=== PATIENT | female | born 1970 | race Caucasian/White ===

== ENCOUNTER 2019-11-14 10:46 | Emergency (ER) | payer OTHER, SELFPAY ==
[2019-11-14 11:03] VITALS: BP 158/76; PULSE 92; RESP 18; TEMP 36.5; O2SAT 100; BMI 35.5
--- NOTE | 2019-11-14 11:11 | ED_ITS ---
HPI - Recheck/Abnormal Lab/Rx General Chief Complaint: Recheck/Abnormal Lab/Rx Stated Complaint: Turning Yellow Time Seen by Provider: 11/14/19 10:55 Source: patient Mode of arrival: Ambulatory Limitations: no limitations History of Present Illness HPI narrative: Patient is a 49-year-old female who presents with yellowing skin color. She says over the past few months she has been extremely fatigued. She states friends noticed that she was yellow 3 days ago this morning she woke up and noticed that her eyes were yellow and things were definitely getting worse. She says her urine has been dark. She has no abdominal pain no nausea or vomiting. She says that every time she eats fatty food it makes her really nauseous does. She has no chest pain or shortness of breath. She has not had any fever chills or weakness. She is currently visiting from out of town. Related Data Home Medications Medication Instructions Recorded Confirmed omeprazole magnesium [Prilosec OTC] 20 mg PO PRN PRN 11/14/19 11/14/19 Allergies Allergy/AdvReac Type Severity Reaction Status Date / Time No Known Drug Allergies Allergy Verified 11/14/19 15:09 Review of Systems Review of Systems Narrative: GENERAL: Denies chills, fatigue, malaise, fever, sweats, travel HEENT: Denies sinus pain, ear pain, sore throat, difficulty swallowing, neck pain RESPIRATORY: Denies dyspnea, cough, wheezing, hemoptysis, sputum. CARDIOVASCULAR: Denies chest pain, palpitations, orthopnea, edema GASTROINTESTINAL: Denies nausea, vomiting, abdominal pain, diarrhea, constipation, melena. : Denies dysuria, frequency, incontinence, hematuria, urinary retention, flank pain. MUSCULOSKELETAL: Denies weakness, joint pain, or bony pain SKIN: Yellow see HPI NEUROLOGIC: Denies weakness, dizziness, headache, numbness, change in speech, confusion PSYCHIATRIC: No concerning psychosocial issues. 12 point review of systems is negative except for those stated above and HPI Patient History Medical History Patient denies medical problems (Acute) Social History Smoking Status: Never smoker Smoking Status: Never smoker alcohol intake frequency: 0-2 drinks per day Substance Use Type: does not use Exam Initial Vital Signs Initial Vital Signs: Vital Signs Temperature 97.7 F 11/14/19 11:03 Pulse Rate 92 H 11/14/19 11:03 Respiratory Rate 18 11/14/19 11:03 Blood Pressure 158/76 H 11/14/19 11:03 Pulse Oximetry 100 11/14/19 11:03 GENERAL: Well-appearing, well-nourished and in no acute distress. HEENT: Head atraumatic,EOMI, pupils reactive, icterus noted bilaterally face symmetric, moist mucous membranes CARDIOVASCULAR: Regular rate and rhythm without murmurs, rubs or gallops. RESPIRATORY: Breath sounds equal bilaterally, no wheezes rales or rhonchi. ABDOMEN: Soft, nontender. Normoactive bowel sounds all 4 quadrants. No guarding or rebound. EXTREMITIES: Normal range of motion, no clubbing or edema. Neurovascularly intact NEUROLOGICAL: Alert and oriented x4.Normal gait and speech. Cranial nerves II through XII grossly intact. SKIN: Warm, dry, no laceration, no petechiae, no rashes or lesions. Course Orders Ordered: ED Orders 11/14/19 11:20 Acetaminophen Stat Complete Blood Count AUTO DIFF Stat Comprehensive Metabolic Panel Stat Ethanol (ETOH) Stat Hepatic (Liver) Panel Stat Lipase Stat Monotest Stat 11/14/19 11:58 CT abdomen pelvis w con Stat 11/14/19 12:25 US abdomen limited Stat 11/14/19 13:50 MR abdomen wo con Stat 11/14/19 15:10 Hepatitis Acute Panel Stat Vital Signs Vital signs: Vital Signs - 8 hr 11/14/19 11:03 11/14/19 12:05 11/14/19 13:00 Temperature 97.7 F Pulse Rate 92 H 85 74 Respiratory Rate 18 16 16 Blood Pressure 158/76 H Blood Pressure [Left Arm] 119/69 113/67 Pulse Oximetry 100 96 98 11/14/19 15:34 Temperature Pulse Rate 88 Respiratory Rate 17 Blood Pressure Blood Pressure [Left Arm] 119/65 Pulse Oximetry 98 MDM - Recheck/Abnormal Lab/Rx Lab Data Attestation: I reviewed the patient's lab results. Result diagrams: 11/14/19 11:20 11/14/19 11:20 Labs: Lab Results 11/14/19 11/14/19 11/14/19 Range/Units 11:20 11:20 11:20 WBC 4.4 L (4.5-11.0) X10^3/uL RBC 3.84 L (4.0-5.2) X10^6/uL Hgb 12.1 (12.0-16.0) g/dL Hct 34.7 L (36-46) % MCV 90.4 (80-100) fL MCH 31.6 (26-34) PG MCHC 35.0 (30-36) % RDW 18.4 H (11.6-14.8) % Plt Count 127 L (150-400) X10^3/uL Neut % (Auto) 67.3 (50-75) % Lymph % (Auto) 24.6 L (25-40) % [place] % (Auto) 5.3 (3-14) % Eos % (Auto) 1.8 L (2-4) % Baso % (Auto) 1.0 (0-2) % Neut # (Auto) 2900 (3625-6657) /uL Lymph # (Auto) 1100 (0837-5330) /uL [place] # (Auto) 200 (0-900) /uL Eos # (Auto) 100 (0-450) /uL Baso # (Auto) 0 (0-100) /uL Sodium 133 L (137-145) mmol/L Potassium 3.5 (3.4-5.1) mmol/L Chloride 105 (98-107) mmol/L Carbon Dioxide 22 (22-32) mmol/L BUN 7 (7-17) mg/dL Creatinine 0.50 L (0.52-1.04) mg/dL Estimated GFR > 60.0 (>60) mL/min BUN/Creatinine Ratio 14.0 (6-22) Glucose 190 H (70-100) mg/dL Calcium 8.3 L (8.4-10.2) mg/dL Total Bilirubin 10.5 H 10.4 H (0.2-1.3) mg/dL Conjugated Bilirubin 4.6 H (0.0-0.3) md/dL Unconjugated Bilirubin 2.5 H (0.0-1.1) mg/dL AST 1718 H 1690 H (14-36) IU/L ALT 1011 H 1020 H (<35) IU/L Alkaline Phosphatase 199 H 200 H (38-126) U/L Total Protein 8.7 H 8.5 H (6.3-8.2) g/dL Albumin 3.1 L 3.0 L (3.5-5.0) g/dL Globulin 5.6 H 5.5 H (1.7-4.1) g/dL Albumin/Globulin Ratio 0.6 L 0.5 L (1.0-2.8) Lipase 274 (23-300) U/L Acetaminophen < 10 L (10-30) ug/mL Ethyl Alcohol < 10 ( - 10) mg/dL Monoscreen (Negative) 11/14/19 Range/Units 11:20 WBC (4.5-11.0) X10^3/uL RBC (4.0-5.2) X10^6/uL Hgb (12.0-16.0) g/dL Hct (36-46) % MCV (80-100) fL MCH (26-34) PG MCHC (30-36) % RDW (11.6-14.8) % Plt Count (150-400) X10^3/uL Neut % (Auto) (50-75) % Lymph % (Auto) (25-40) % [place] % (Auto) (3-14) % Eos % (Auto) (2-4) % Baso % (Auto) (0-2) % Neut # (Auto) (2681-4969) /uL Lymph # (Auto) (4712-6216) /uL [place] # (Auto) (0-900) /uL Eos # (Auto) (0-450) /uL Baso # (Auto) (0-100) /uL Sodium (137-145) mmol/L Potassium (3.4-5.1) mmol/L Chloride (98-107) mmol/L Carbon Dioxide (22-32) mmol/L BUN (7-17) mg/dL Creatinine (0.52-1.04) mg/dL Estimated GFR (>60) mL/min BUN/Creatinine Ratio (6-22) Glucose (70-100) mg/dL Calcium (8.4-10.2) mg/dL Total Bilirubin (0.2-1.3) mg/dL Conjugated Bilirubin (0.0-0.3) md/dL Unconjugated Bilirubin (0.0-1.1) mg/dL AST (14-36) IU/L ALT (<35) IU/L Alkaline Phosphatase (38-126) U/L Total Protein (6.3-8.2) g/dL Albumin (3.5-5.0) g/dL Globulin (1.7-4.1) g/dL Albumin/Globulin Ratio (1.0-2.8) Lipase (23-300) U/L Acetaminophen (10-30) ug/mL Ethyl Alcohol ( - 10) mg/dL Monoscreen Negative (Negative) Urine Dip Bedside Urine Glucose Negative Bedside Urine Bilirubin - Negative Bedside Urine Ketone - Negative Urine Specific [place] 1.010 Bedside Urine Occult Blood - Negative Bedside Urine pH 6.0 Bedside Urine Protein - Negative Bedside Urine Urobilinogen - Negative Bedside Urine Nitrite - Negative Bedside Urine Leukocytes - Negative Esterase Imaging Data CT scan - abdomen/pelvis: Radiologist's Impression: PROCEDURE: CT ABDOMEN PELVIS W CON INDICATIONS: jaundice TECHNIQUE: After the administration of intravenous contrast, 5 mm thick sections acquired from the diaphragm to the symphysis. 5 mm coronal and sagittal reformats were acquired. For radiation dose reduction, the following was used: automated exposure control, adjustment of mA and/or kV according to patient size. COMPARISON: None. FINDINGS: Image quality: Excellent. ABDOMEN: Lung bases: Lung bases are clear. Heart size is normal. Solid organs: The liver has a nodular surface contour with enlargement of the left lobe consistent with cirrhotic change. No focal symphysis liver masses. Gallbladder is somewhat contracted. The gallbladder wall is thickened. There are small gallstones in the gallbladder wall.. Biliary system is non dilated. Question small pancreatic pseudocyst versus small cystic neoplasm measuring 1.3 cm in maximum diameter. Pancreas otherwise enhances normally. Mild splenomegaly No adrenal nodules. Kidneys demonstrate normal size and enhancement, without hydronephrosis. Peritoneum and bowel: Mild thickening of the second portion of the duodenum. No dilated loops. No evidence of bowel obstruction. Mild ascites. No free air or abscess cavity. Nodes and vessels: Prominent. Portal/peripancreatic adenopathy, with confluent lymph nodes measuring approximately 4.0 x 1 cm on image 23/2. Portacaval adenopathy measuring approximately 2.1 x 2.5 cm. No other suspicious adenopathy noted.. Aorta and inferior vena cava are normal in size. Incidental note made of the presence of a circumaortic left renal vein. Miscellaneous: No ventral hernias. PELVIS: Genitourinary: Bladder wall thickness is normal. Miscellaneous: No inguinal hernias or adenopathy. Bones: No suspicious bony lesions. No vertebral body compression fractures. IMPRESSION: 1. Cirrhosis, mild splenomegaly, small amount ascites. 2. No biliary ductal dilatation. 3. Nonspecific periportal/peripancreatic/portocaval adenopathy. 4. Cholelithiasis. 5. Question small pancreatic pseudocyst versus small cystic neoplasm of the pancreas. 3. Mild thickening of the second portion of the duodenum. Dictated by: Garry Pablo M.D. on 11/14/2019 at 12:19 US - abdomen: Radiologist's Impression: PROCEDURE: US ABDOMEN LIMITED INDICATIONS: RUQ- VERY ELEVATED LIVER ENZYMES AND BILI TECHNIQUE: Real-time scanning was performed of the abdominal and retroperitoneal organs, with image documentation. COMPARISON: CT abdomen pelvis also performed today. FINDINGS: Liver: Within normal limits in size. Nodular liver surface. No focal lesion identified. Gallbladder: Nondilated. Small gallstones. Gallbladder wall thickening measuring 6 mm. No pericholecystic fluid. Negative sonographic Irizarry's sign. Biliary ducts: Intrahepatic bile ducts are non-dilated. Extrahepatic bile duct caliber measures 6 mm. Normal is 6-7 mm or less in diameter, or 10 mm or less post-cholecystectomy. Pancreas: Visualized portions of the pancreas are sonographically normal. Small oblong shaped circumscribed hypoechoic lymph node superior to the splenic artery, which is also seen on CT measuring 3.4 x 0.9 cm. Right kidney: No hydronephrosis. IMPRESSION: 1. Gallbladder is nondistended which speaks against acute cholecystitis. However, there is moderate gallbladder wall thickening and gallstones. Favor reactive etiology. 2. Cirrhosis. No ascites or biliary ductal dilatation. 3. Enlarged lymph node adjacent to the pancreas. Dictated by: Tristen Hernandez M.D. on 11/14/2019 at 13:13 MRCP: Radiologist's Impression: PROCEDURE: MR ABDOMEN WO CON INDICATIONS: elevated bili TECHNIQUE: Coronal HASTE through the abdomen, axial 2-D FLASH in- and [id number], and breath-hold T2 FSE with fat saturation through the biliary system and pancreas. Oblique coronal and axial thin-slice HASTE, radial thick-slab HASTE centered on the extrahepatic bile ducts. Intravenous secretin: Not requested. COMPARISON: [facility], US, US ABDOMEN LIMITED, 11/14/2019, 12:42. [facility], CT, CT ABDOMEN PELVIS W CON, 11/14/2019, 11:52. FINDINGS: Image quality: Excellent. Pancreas and biliary system: Intra- and extra-hepatic biliary ducts are non dilated. No biliary ductal filling defects. Pancreas is normal in morphology, without adjacent soft tissue edema. Pancreatic duct is normal in caliber, without developmental anomalies. Gallbladder contains tiny gallstones. There is gallbladder wall thickening. There is no fluid around the gallbladder.. Other solid organs: Nodular contour of the liver with enlarged left lobe suggests cirrhosis. Splenomegaly. No adrenal nodules. Both kidneys are normal in size, without hydronephrosis. Nodes and vessels: No retroperitoneal or mesenteric adenopathy by size criteria. Aorta and inferior vena cava are normal in size. Bowel and peritoneum: Unenhanced bowel loops are normal in caliber. Second portion the duodenum is unremarkable (it was thought to be thickened on the CT). Mild ascites. Lung bases: No basal pleural effusions. Heart size is normal. Bones and soft tissues: No ventral hernias. Bone marrow is of normal overall signal. IMPRESSION: 1. Cirrhotic change, splenomegaly. 2. Cholelithiasis. 3. No biliary stones. No biliary ductal dilatation. Dictated by: Garry Pablo M.D. on 11/14/2019 at 15:53 MDM Narrative Medical decision making narrative: The patient is relatively asymptomatic she has no abdominal pain she has painless jaundice. A significant elevation of bilirubin and liver enzymes without right upper quadrant pain nausea or vomiting. No common bile duct dilation noted on ultrasound or CT. Briefly discussed case with Dr. Cavazos who agrees with MRCP as an outpatient follow-up. 4:[address] Jewell Mata, patient's primary PCP at [facility]. She has been updated patient's symptoms test results, she is putting in an urgent referral to GI. The patient has been given disks of all imaging along with copies of blood work and reports. Also information faxed to PCP office with patient permission. Discharge Plan Departure Patient Disposition: Home Clinical Impression: Jaundice, Elevated liver enzymes Discharge Date/Time: 11/14/19 16:26 Activity Restrictions/Additional Instructions: *You have been diagnosed with jaundice elevated liver enzymes *What to do: Unclear why your liver enzymes are so elevated. You do have a small area on your pancreas which is concerning. Your primary care provider has been notified and is putting in her urgent referral for a GI doctor. *Continue to take medications as directed DO NOT TAKE TYLENOL/ACETAMINOPHEN, AVOID ALCOHOL *Follow up with your primary care provider in 2-3 days *Return to ER if you should have increased abdominal pain, nausea, vomiting fevers or any new, worsening or concerning symptoms Prescriptions: No Action Prilosec OTC 20 mg Tablet,Delayed Release (Dr/Ec) 20 mg PO PRN PRN (Reason: Acid Reflux) RF: 0
[2019-11-14 11:29] LABS: Add Manual Diff / Slide Review NO; Basophils Absolute Auto 0 /uL (0-100); Eosinophils Absolute Auto 100 /uL (0-450); Eosinophils Percent Auto 1.8 % (2-4); Hematocrit 34.7 % (36-46); Hemoglobin 12.1 g/dL (12.0-16.0); Lymphocytes Absolute Auto 1100 /uL (1100-4500); Lymphocytes Percent Auto 24.6 % (25-40); Mean Corpuscular Hemoglobin 31.6 PG (26-34); Mean Corpuscular Volume 90.4 fL (80-100); Monocytes Absolute Auto 200 /uL (0-900); Monocytes Percent Auto 5.3 % (3-14); Neutrophils Absolute Auto 2900 /uL (1500-7000); Neutrophils Percent Auto 67.3 % (50-75); Platelet Count 127 X10^3/uL (150-400); Red Blood Cell Count 3.84 X10^6/uL (4.0-5.2); Red Cell Distribution Width 18.4 % (11.6-14.8); White Blood Cell Count 4.4 X10^3/uL (4.5-11.0)
[2019-11-14 11:49] LABS: Albumin 3.1 g/dL (3.5-5.0); Albumin Globulin Ratio 0.6 (1.0-2.8); Alkaline Phosphatase 199 U/L (38-126); Bilirubin Total 10.5 mg/dL (0.2-1.3); Blood Urea Nitrogen 7 mg/dL (7-17); Calcium 8.3 mg/dL (8.4-10.2); Carbon Dioxide 22 mmol/L (22-32); Chloride 105 mmol/L (98-107); Estimated Glomerular Filt Rate > 60.0 mL/min (>60); Globulin 5.6 g/dL (1.7-4.1); Glucose 190 mg/dL (70-100); HEMOLYSIS < 15 (0-50); Lipase 274 U/L (23-300); Potassium 3.5 mmol/L (3.4-5.1); Sodium 133 mmol/L (137-145); Total Protein 8.7 g/dL (6.3-8.2)
--- NOTE | 2019-11-14 11:58 | DI.CT.S_ITS ---
PROCEDURE: CT ABDOMEN PELVIS W CON INDICATIONS: jaundice TECHNIQUE: After the administration of intravenous contrast, 5 mm thick sections acquired from the diaphragm to the symphysis. 5 mm coronal and sagittal reformats were acquired. For radiation dose reduction, the following was used: automated exposure control, adjustment of mA and/or kV according to patient size. COMPARISON: None. FINDINGS: Image quality: Excellent. ABDOMEN: Lung bases: Lung bases are clear. Heart size is normal. Solid organs: The liver has a nodular surface contour with enlargement of the left lobe consistent with cirrhotic change. No focal symphysis liver masses. Gallbladder is somewhat contracted. The gallbladder wall is thickened. There are small gallstones in the gallbladder wall.. Biliary system is non dilated. Question small pancreatic pseudocyst versus small cystic neoplasm measuring 1.3 cm in maximum diameter. Pancreas otherwise enhances normally. Mild splenomegaly No adrenal nodules. Kidneys demonstrate normal size and enhancement, without hydronephrosis. Peritoneum and bowel: Mild thickening of the second portion of the duodenum. No dilated loops. No evidence of bowel obstruction. Mild ascites. No free air or abscess cavity. Nodes and vessels: Prominent. Portal/peripancreatic adenopathy, with confluent lymph nodes measuring approximately 4.0 x 1 cm on image 23/2. Portacaval adenopathy measuring approximately 2.1 x 2.5 cm. No other suspicious adenopathy noted.. Aorta and inferior vena cava are normal in size. Incidental note made of the presence of a circumaortic left renal vein. Miscellaneous: No ventral hernias. PELVIS: Genitourinary: Bladder wall thickness is normal. Miscellaneous: No inguinal hernias or adenopathy. Bones: No suspicious bony lesions. No vertebral body compression fractures. IMPRESSION: 1. Cirrhosis, mild splenomegaly, small amount ascites. 2. No biliary ductal dilatation. 3. Nonspecific periportal/peripancreatic/portocaval adenopathy. 4. Cholelithiasis. 5. Question small pancreatic pseudocyst versus small cystic neoplasm of the pancreas. 3. Mild thickening of the second portion of the duodenum. Dictated by: Garry Pablo M.D. on 11/14/2019 at 12:19 Approved by: Garry Pablo M.D. on 11/14/2019 at 12:30
[2019-11-14 11:59] LABS: Alanine Aminotransferase 1011 IU/L (<35)
[2019-11-14 12:05] VITALS: BP 119/69; PULSE 85; RESP 16; O2SAT 96
[2019-11-14 12:14] LABS: Aspartate Aminotransferase 1718 IU/L (14-36)
--- NOTE | 2019-11-14 12:25 | DI.US.S_ITS ---
PROCEDURE: US ABDOMEN LIMITED INDICATIONS: RUQ- VERY ELEVATED LIVER ENZYMES AND BILI TECHNIQUE: Real-time scanning was performed of the abdominal and retroperitoneal organs, with image documentation. COMPARISON: CT abdomen pelvis also performed today. FINDINGS: Liver: Within normal limits in size. Nodular liver surface. No focal lesion identified. Gallbladder: Nondilated. Small gallstones. Gallbladder wall thickening measuring 6 mm. No pericholecystic fluid. Negative sonographic Irizarry's sign. Biliary ducts: Intrahepatic bile ducts are non-dilated. Extrahepatic bile duct caliber measures 6 mm. Normal is 6-7 mm or less in diameter, or 10 mm or less post-cholecystectomy. Pancreas: Visualized portions of the pancreas are sonographically normal. Small oblong shaped circumscribed hypoechoic lymph node superior to the splenic artery, which is also seen on CT measuring 3.4 x 0.9 cm. Right kidney: No hydronephrosis. IMPRESSION: 1. Gallbladder is nondistended which speaks against acute cholecystitis. However, there is moderate gallbladder wall thickening and gallstones. Favor reactive etiology. 2. Cirrhosis. No ascites or biliary ductal dilatation. 3. Enlarged lymph node adjacent to the pancreas. Dictated by: Tristen Hernandez M.D. on 11/14/2019 at 13:13 Approved by: Tristen Hernandez M.D. on 11/14/2019 at 13:20
[2019-11-14 12:42] LABS: Acetaminophen < 10 ug/mL (10-30); Albumin Globulin Ratio 0.5 (1.0-2.8); Alkaline Phosphatase 200 U/L (38-126); Bilirubin Conjugated 4.6 md/dL (0.0-0.3); Bilirubin Total 10.4 mg/dL (0.2-1.3); Bilirubin Unconjugated 2.5 mg/dL (0.0-1.1); Ethanol (ETOH) < 10 mg/dL; Globulin 5.5 g/dL (1.7-4.1); HEMOLYSIS < 15 (0-50); Total Protein 8.5 g/dL (6.3-8.2)
[2019-11-14 12:52] LABS: Alanine Aminotransferase 1020 IU/L (<35)
[2019-11-14 13:00] VITALS: BP 113/67; PULSE 74; RESP 16; O2SAT 98
[2019-11-14 13:10] LABS: Aspartate Aminotransferase 1690 IU/L (14-36)
--- NOTE | 2019-11-14 13:50 | DI.MRI.S_ITS ---
PROCEDURE: MR ABDOMEN WO CON INDICATIONS: elevated bili TECHNIQUE: Coronal HASTE through the abdomen, axial 2-D FLASH in- and [id number], and breath-hold T2 FSE with fat saturation through the biliary system and pancreas. Oblique coronal and axial thin-slice HASTE, radial thick-slab HASTE centered on the extrahepatic bile ducts. Intravenous secretin: Not requested. COMPARISON: [facility], US, US ABDOMEN LIMITED, 11/14/2019, 12:42. [facility], CT, CT ABDOMEN PELVIS W CON, 11/14/2019, 11:52. FINDINGS: Image quality: Excellent. Pancreas and biliary system: Intra- and extra-hepatic biliary ducts are non dilated. No biliary ductal filling defects. Pancreas is normal in morphology, without adjacent soft tissue edema. Pancreatic duct is normal in caliber, without developmental anomalies. Gallbladder contains tiny gallstones. There is gallbladder wall thickening. There is no fluid around the gallbladder.. Other solid organs: Nodular contour of the liver with enlarged left lobe suggests cirrhosis. Splenomegaly. No adrenal nodules. Both kidneys are normal in size, without hydronephrosis. Nodes and vessels: No retroperitoneal or mesenteric adenopathy by size criteria. Aorta and inferior vena cava are normal in size. Bowel and peritoneum: Unenhanced bowel loops are normal in caliber. Second portion the duodenum is unremarkable (it was thought to be thickened on the CT). Mild ascites. Lung bases: No basal pleural effusions. Heart size is normal. Bones and soft tissues: No ventral hernias. Bone marrow is of normal overall signal. IMPRESSION: 1. Cirrhotic change, splenomegaly. 2. Cholelithiasis. 3. No biliary stones. No biliary ductal dilatation. Dictated by: Garry Pablo M.D. on 11/14/2019 at 15:53 Approved by: Garry Pablo M.D. on 11/14/2019 at 15:55
[2019-11-14 15:22] LABS: Monotest Negative (Negative)
[2019-11-14 15:34] VITALS: BP 119/65; PULSE 88; RESP 17; O2SAT 98
[2019-11-18 16:15] LABS: Hepatitis A Antibody IgM NONREACTIVE; Hepatitis Acute Panel Interp 0.11; Hepatitis B Core Antibody IgM NONREACTIVE; Hepatitis B Surface Antigen NONREACTIVE; Hepatitis C Antibody NONREACTIVE
== END 2019-11-14 16:26 | disposition home or self-care (01) ==
PROVIDERS: Emergency Provider Emergency Medicine
DX: R17 Unspecified jaundice (principal); R74.8 Abnormal levels of other serum enzymes
CPT/HCPCS: 36415; 74177; 74181; 76705; 80053; 80074; 80076; 80320; 80329; 81003; 83690; 85025; 86318; 99284; G0480; Q9967